=== PATIENT | male | born 1970 ===

== ENCOUNTER 2017-02-23 23:41 | Emergency (ER) | payer OTHER ==
[~2017-02-23 23:41] MED LIST: Ammonia 2% Inhalant ONE
[2017-02-23 23:50] VITALS: RESP 16; TEMP 98.1
--- NOTE | 2017-02-24 00:03 | ED PDOC ---
HPI: Psych/Substance Abuse Time Seen by Provider: 02/23/17 23:49 Chief Complaint (Nursing): Alcohol Ingestion Chief Complaint (Provider): etoh, fall History Per: Patient, EMS, Family Additional Complaint(s): 46-year-old male with no past medical history presents to emergency department for evaluation of head and neck injury s/p fall. Patient admits to drinking whiskey tonight and states he was walking upstairs when he tripped and fell hitting head and neck against the ground, ? LOC. Patient arrives via EMS with cervical collar in place. He complains of headache and neck pain and denies any other injuries. Patient denies any dizziness or vision changes since time of fall. Past Medical History Reviewed: Historical Data, Nursing Documentation, Vital Signs Vital Signs: Last Vital Signs Temp 98.1 F 02/23/17 23:47 Pulse 63 02/23/17 23:47 Resp 16 02/23/17 23:47 BP 149/87 02/23/17 23:47 Pulse Ox 95 02/23/17 23:47 - Medical History PMH: No Chronic Diseases - Surgical History Surgical History: No Surg Hx - Family History Family History: States: No Known Family Hx - Living Arrangements Living Arrangements: With Family - Social History Current smoker - smoking cessation education provided: No Alcohol: Social Drugs: Denies - Home Medications Home Medications: Ambulatory Orders Medication Instructions Recorded Unobtainable 02/24/17 - Allergies Allergies/Adverse Reactions: Allergies Allergy/AdvReac Type Severity Reaction Status Date / Time No Known Allergies Allergy Verified 02/24/17 00:03 Review of Systems ROS Statement: Except As Marked, All Systems Reviewed And Found Negative Neurological: Positive for: Other (head and neck injury s/p fall) Psych: Positive for: Other (etoh) Physical Exam - Reviewed Nursing Documentation Reviewed: Yes Vital Signs Reviewed: Yes - Physical Exam Appears: Positive for: Well, Non-toxic, No Acute Distress Skin: Negative for: Rash Eye Exam: Positive for: Normal appearance, EOMI, PERRL Neck: Positive for: Pain On Movement Of Neck (collar in place, tenderness to posterior spine diffusely with no step off) Cardiovascular/Chest: Positive for: Regular Rate, Rhythm Respiratory: Positive for: Normal Breath Sounds. Negative for: Respiratory Distress Back: Negative for: L CVA Tenderness, R CVA Tenderness Extremity: Positive for: Normal ROM. Negative for: Pedal Edema Neurologic/Psych: Positive for: Alert, Other (intoxicated, answers questions appropriately) - Laboratory Results Result Diagrams: 02/24/17 00:10 02/24/17 00:10 - ECG O2 Sat by Pulse Oximetry: 95 Pulse Ox Interpretation: Normal - Other Rad Head CT X-Ray: Read By Radiologist X-Ray Interpretation: no acute finding C spine CT X-Ray: Read By Radiologist X-Ray Interpretation: see below Medical Decision Making Medical Decision Makin46 year old intoxicated male with head and neck injury Plan: CBC CMP BAL CT head and cervical spine Fingerstick: 111 CT cervical spine: IMPRESSION: No acute fracture. Slight anterior subluxation C7 -T1 of uncertain age and etiology. Degenerative change Collar removed after CT report reviewed. Patient's mother and father at bedside agree to take patient home and assume responsibility for him given that he is intoxicated. Patient is stable for discharge with parents. Disposition - Clinical Impression Clinical Impression: Alcohol intolerance, Cervical strain, Head injury - Patient ED Disposition Is Patient to be Admitted: No Counseled Patient/Family Regarding: Studies Performed, Diagnosis, Need For Followup - Disposition Referrals: [facility] [Outside] Disposition: Routine/Home Disposition Time: 01:52 Condition: STABLE Additional Instructions: NSAID's for pain as needed. Follow up with clinic or primary care doctor in 2- 3 days. Instructions: Cervical Strain (DC), Head Injury (ED), Alcohol Intoxication (ED) Print Language: ESTONIAN Results - Lab Results Lab Results: 02/24/17 02/24/17 00:10 00:10 WBC 6.0 RBC 4.93 Hgb 14.6 Hct 43.6 MCV 88.3 MCH 29.7 MCHC 33.6 RDW 13.5 Plt Count 332 MPV 8.8 Neut % (Auto) 56.7 Lymph % (Auto) 34.7 Twiggs % (Auto) 6.4 Eos % (Auto) 1.0 Baso % (Auto) 1.2 Neut # 3.4 Lymph # 2.1 Twiggs # 0.4 Eos # 0.1 Baso # 0.1 Sodium 146 Potassium 3.6 Chloride 105 Carbon Dioxide 26 Anion Gap 20 BUN 14 Creatinine 1.0 Est GFR ( Amer) > 60 Est GFR (Non-Af Amer) > 60 Random Glucose 123 H Calcium 9.2 Total Bilirubin 0.3 AST 39 ALT 31 Alkaline Phosphatase 71 Total Protein 8.2 Albumin 4.7 Globulin 3.5 Albumin/Globulin Ratio 1.4 Alcohol, Quantitative 268 H
[2017-02-24] MEDS ORDERED: AMMONIA IH STA (00:07)
[2017-02-24 00:22] LABS: BASO # 0.1 K/uL (0.0-0.2); BASO % 1.2 % (0.0-2.0); EOS # 0.1 K/uL (0.0-0.7); HEMATOCRIT 43.6 % (35.0-51.0); LYMPH # 2.1 K/uL (1.0-4.3); LYMPH % 34.7 % (20.0-40.0); MEAN CELL VOLUME 88.3 fl (80.0-94.0); MEAN CORPUSCULAR HEMOGLOBIN 29.7 pg (27.0-31.0); MEAN CORPUSCULAR HGB CONC 33.6 g/dL (33.0-37.0); MEAN PLATELET VOLUME 8.8 fl (7.2-11.7); MONO # 0.4 K/uL (0.0-0.8); MONO % 6.4 % (0.0-10.0); NEUT # 3.4 K/uL (1.8-7.0); NEUT % 56.7 % (50.0-75.0); RED CELL DISTRIBUTION WIDTH 13.5 % (11.5-14.5)
[2017-02-24 00:38] LABS: ALB/GLOB RATIO 1.4 (1.0-2.1); ALCOHOL SERUM 268 mg/dl (0-10); ALKALINE PHOSPHATASE 71 U/L (38-126); ALT/SGPT 31 U/L (21-72); AST/SGOT 39 U/L (17-59); BILIRUBIN,TOTAL 0.3 mg/dl (0.2-1.3); BLOOD UREA NITROGEN 14 mg/dl (9-20); CALCIUM 9.2 mg/dL (8.4-10.2); CARBON DIOXIDE 26 mmol/L (22-30); CHLORIDE 105 mmol/L (98-107); GFR AFRICAN-AMERICAN > 60; GLUCOSE,RANDOM 123 mg/dL (75-110); POTASSIUM 3.6 MMOL/L (3.6-5.0); SODIUM 146 mmol/l (132-148); TOTAL PROTEIN 8.2 G/DL (6.3-8.2)
[2017-02-24 02:20] VITALS: BP 135/80; PULSE 85
[2017-02-24 03:11] VITALS: O2SAT 95
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
== END 2017-02-24 02:20 | disposition home or self-care (01) ==
LOC: H.ER 23:41
DX: F10.129 Alcohol abuse with intoxication, unspecified (principal); S09.90XA Unspecified injury of head, initial encounter; S16.1XXA Strain of muscle, fascia and tendon at neck level, initial encounter; W10.9XXA Fall (on) (from) unspecified stairs and steps, initial encounter; Y92.89 Other specified places as the place of occurrence of the external cause